=== PATIENT | male | born 1955 | race Two or more races ===

== ENCOUNTER 2022-09-15 05:54 | Day surgery (SDC) | payer BC, SELFPAY ==
[2022-09-09 06:57] LABS: Hematocrit 46.4 % (40-54); Hemoglobin 15.6 g/dL (13.0-16.5); Mean Corp Hgb Conc 33.6 g/dL (32-36); Mean Corpuscular Hgb 30.4 pg (27.0-32.0); Mean Corpuscular Volume 90.3 fL (80-94); Mean Platelet Vol. 8.4 fl (6.2-12.0); Platelet Count 246 K/mm3 (150-450); RBC Distribution Width CV 12.9 % (11.6-14.6); RBC Distribution Width SD 42.9 fl (35.1-43.9); Red Blood Count 5.14 M/mm3 (4.6-6.2); White Blood Count 5.1 K/mm3 (4.4-11.0)
[2022-09-09 07:21] LABS: Anion Gap 7 (5-15); BUN 19 mg/dL (7-18); BUN/Creat Ratio 16.2 RATIO (10-20); Calcium,Total 9.1 mg/dL (8.5-10.1); Chloride 106 mmol/L (98-107); Creatinine, Serum 1.17 mg/dL (0.70-1.30); EST Glomerular Filtration Rate 66 mL/min (>60); Est Glom Filt Rate - Afr Amer 80 mL/min (>60); Glucose 136 mg/dL (74-106); Potassium 3.9 mmol/L (3.5-5.1); Sodium Level 139 mmol/L (136-145)
[2022-09-15] VITALS (8 sets, daily range): BP systolic 105–139; BP diastolic 63–72; PULSE 66–91; RESP 14–18; TEMP 36.1–36.5; O2SAT 93–100; BMI 24.5
--- NOTE | 2022-09-15 06:36 | DCINST_ITS ---
Discharge Instructions Procedure General Surgery Diet Discharge Diet: Light diet - advance as tolerated (if you have questions about your diet instructions, please talk to you doctor.) Activity Discharge Activity: May Not Drive (for 3-5 days or while taking narcotic pain medicine.) May shower in (days): 1 Lifting Restrictions: 10 pounds Dressing / Incision Call your doctor if your incision/area has: Continuous Slow Oozing, Sudden Increased Bleeding, Increased Pain/ Swelling, Increased Redness and Foul Smelling Discharge Call your doctor if you observe: Fever of 101 or Higher Suture Line Care: Avoid Pulling/Pushing and Avoid Pinching/Bending Additional Dressing/Incision Instructions:: Change or remove dressing in 4 days. Leave steri-strips in place for 1 week. Follow Up Care Please Follow Up With: Ranjit Messer MD When: Call [phone] to make an appointment to be seen in about 10 days. Test Results: Test results from this visit will be discussed in further detail at your follow- up appointment, if applicable. Discharge Plan Admission Attending Provider: Ranjit Messer Primary Care Provider: Ace Bernstein Discharge Orders/Prescriptions Prescriptions: No Action lisinopril 5 mg tablet 5 mg PO DAILY tamsulosin [Flomax] 0.4 mg capsule 0.4 mg PO DAILY Qty: 30 0RF Referrals / Follow Up: Ace Bernstein MD [Primary Care Provider] - Disposition Disposition (needs filled in before D/C Order can be placed): Home, Self Care
--- NOTE | 2022-09-15 06:36 | HP.PCM_ITS ---
History and Physical Date of Admission: 09/15/22 Visit Reasons:?Hernia Chief Complaint: right inguinal hernia Wellness Program Manager Required: No Is patient in pain?: Yes (right groin) Allergies No Known Allergies Allergy (Unverified 08/03/22 14:20) Medications lisinopril 5 mg tablet 5 mg PO 08/03/22 [History Confirmed 08/03/22] tamsulosin 0.4 mg capsule (Flomax) 0.4 mg PO DAILY #30 caps 08/03/22 [Rx Confirmed 08/03/22] PFSH Medical History?(Updated 08/03/22 @ 14:21 by Esperanza Turcios) HTN (hypertension) Right inguinal hernia Surgical History?(Updated 08/03/22 @ 14:21 by Esperanza Turcios) S/P tonsillectomy Family History?(Updated 08/03/22 @ 14:22 by Esperanza Turcios) Father Colon cancer HPI HPI HPI: 67-year-old gentleman is referred by Dr. Al Bernstein for surgical consultation regarding hernia.? Written copy of my surgical consult recommendations will return to him.? Very pleasant gentleman.? He was getting his [employer] license renewed and confirmed that he had a right inguinal hernia.? He has noticed a bulge in his right groin for perhaps a month.? No particular pain or tenderness and he is able to reduce it with lying supine.? He denies any acute trauma or injury.? He has never had any previous abdominal surgery.? He enjoys a very good lifestyle and quality of life.? Only has mild hypertension.? He is not on any anticoagulants.? He is able to climb a flight of stairs without difficulty. 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 ROS General General: No weight change, appetite, fatigue, colon cancer, breast cancer or weakness HEENT HEENT: No difficulty swallowing, eye injury, eye surgery, swollen glands or hoarseness Endo Endocrine: No thyroid disease, diabetes mellitus, thyroid cancer, Hair loss, heat intolerance or cold intolerance Skin Skin: No rash or changing moles Breast Breast: No left breast lump, right breast lump, nipple discharge, breast pain, abnormal mammogram, abnormal US or breast enlargement Musc Musculoskeletal: No back problems, arthritis, rheumatoid arthritis, gout or joint pain Cardio Cardiovascular: Yes high blood pressure; No murmur, pacemaker, heart disease, atrial fibrillation, heart attack, heart stent, palpitations, shortness of breat with exertion or chest pain Psych Psychiatric: No depression, anxiety or hearing voices Resp Respiratory: No shortness of breath, No sleep apnea, No cough, No COPD, No asthma, No emphysema and No wheezing Gastro Gastrointestinal: No abdominal pain, No nausea or vomiting, No diarrhea, No constipation, No blood in stool, No acid reflux, No hemorrhoids, No ulcers, No gallbladder problem and No black,tarry stools Sergio Hematologic: No blood thinners, No blood disorders, No bleeding, No anemia and No blood clots Neuro Neurologic: No system reviewed and no additional complaints, except as documented, No as per HPI, No abnormal gait, No abnormal hearing, No abnormal movements, No abnormal speech, No behavioral changes, No burning sensations, No confusion, No convulsions, No disequilibrium, No dizziness, No localized weakness, No frequent falls, No headache(s), No lack of coordination, No loss of vision, No memory loss, No numbness, No other visual disturbances, No radicular pain, No restless legs, No sensory deficit, No syncope, No tingling, No tremor(s), No weakness and No other Exam Const General: cooperative, healthy appearing, comfortable and no acute distress [facility] Head: normal to inspection Eyes General: appearance normal, both eyes and all related structures Neck Neck: normal visual inspection Chest Chest palpation & inspection: normal inspection of the chest Resp Effort & Inspection: normal respiratory effort Auscultation: clear to auscultation bilaterally Cardio Rate: regular rate Rhythm: regular rhythm GI Inspection: normal to inspection Palpation: soft and no hepatosplenomegaly Auscultation: normal bowel sounds Other: Indirect right inguinal hernia, reducible, testicles are descended bilaterally without mass, left groin appears to be solid and intact Skin General: no rashes or lesions noted Lesions: no lesions Neuro General: patient alert, patient awake and patient oriented x3 Extrem General: no calf tenderness Psych Appearance: grossly normal Assessment and Plan Assessment and Plan (1) Right inguinal hernia: ?Status:?Acute ? ? ? Medications: New tamsulosin (Flomax) 0.4 mg? PO DAILY 30 caps 0RF ? ? 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 I recommend to him a laparoscopic right inguinal herniorrhaphy with mesh and I discussed the technique, benefit, risk, altern atives.? He has had an opportunity ask and have questions answered. He does get up at approximately 4 AM to urinate.? I think it would be beneficial to initiate him on tamsulosin preoperatively in an attempt to help avoid urinary retention postoperatively. 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 We will negotiate with him pending how he is an individual recovers postoperatively. I very much appreciate the kind option of assisting with the surgical care Copy: Dr. Al Messer M.D., F.A.C.S I have examined the patient and the H&P has been reviewed. There are no clinical changes since date of exam. Ranjit Messer M.D., F.A.C.S.
[2022-09-15] MEDS: Lactated Ringers 1,000 ML 15 ML IV (06:41)
[2022-09-15] MEDS: Cefazolin 2 GM in 0.9% Normal Saline 100 ML IV (07:26)
[2022-09-15] MEDS: Bupivacaine Mpf 0.5% 30 ML VIAL (07:46)
--- NOTE | 2022-09-15 08:17 | PCM.OPRPT ---
Report of Operation Date of Procedure: 09/15/22 Pre-Operative Diagnosis: Symptomatic right inguinal hernia Post-Operative Diagnosis: Symptomatic indirect right inguinal hernia Surgery/Procedure Performed:: Laparoscopic right inguinal herniorrhaphy with extra-large Bard 3D max mesh Lot [id number], reference [id number], expiry date 10/30/2026 Secure strap Lot [id number], expiry date 10/2023 Description of Surgical Findings:: Timeout and informed consent was obtained. 67-year-old gentleman was taken to the operating placed upon the table underwent general endotracheal intubation anesthesia. Ancef 2 g were given intravenously. The abdomen was sterilely prepped and draped. 0.5% Marcaine was used as a local anesthetic total of 30 cc was used. Local was instilled and vertical infraumbilical incision was created holding sutures of 0 Vicryl placed varies needle inserted saline drop test performed the abdomen was insufflated with CO2 to a pressure of 10 mmHg pressure 10 mm trocar inserted 10 mm laparoscope inserted under visualization 5 mm ports were placed in the right left lower quadrant pelvic inspection revealed no significant defect on the left groin with a significant indirect hernia on the right a ilioinguinal nerve block was performed on the right under laparoscopic visualization the peritoneum superior lateral to the internal ring was incised carried immediately the peritoneum was completely dissected free excellent dissection getting the sac freed from the cord structures was achieved when needed hemostasis obtained with electrocautery and Hem-o-magdy clips I had a complete dissection performed I then placed a extra-large Bard 3D max mesh it very nice covered the defect area and the direct and indirect and femoral areas I secured it laterally and superiorly with secure strap very nice positioning was achieved the peritoneum was approximated to itself with secure strap and Hem-o-magdy clip complete obliteration to the mesh was achieved the abdomen was allowed to deflate of the CO2 the fascia at the umbilicus approximated up to 0 Vicryl [id number] suture skin edges approximated with interrupted 4 Monocryl subdermal stitches. Steri-Strips Telfa OpSite dressings applied. Sponge and instrument and needle counts were reported to the surgeon to be correct. Specimens none. Drains none. Blood loss minimal. The patient was taken to the recovery room in satisfactory addition without apparent complication Ranjit Messer M.D., F.A.C.S. Surgeon: Ranjit Messer Type of Anesthesia: General and Local Anesthesiologist: Antelmo Roy
[2022-09-15] MEDS: Acetaminophen 325 MG Tablet 650 MG PO (10:54)
--- NOTE | 2022-09-15 10:58 | SUR.PHASEII ---
Up to BR, attempted to void, unable, will continue with PO and IV fluids. Pt instructed to call when he feels the need to void.
--- NOTE | 2022-09-15 14:07 | SUR.PHASEII ---
BLADDER SCANNED FOR 175ML, DR PRESLEY PAGED. TORIBIO ART TO GO HOME WITH. D/C ART MONDAY.
== END 2022-09-15 14:42 | disposition home or self-care (01) ==
LOC: SDC 05:57 → AC 06:00
PROVIDERS: PCP Family Medicine; Referring Provider Surgery; Visit Provider Surgery
PROC: (CPT 49650; principal; 2022-09-15 07:10)
DX: K40.90 Unilateral inguinal hernia, without obstruction or gangrene, not specified as recurrent (principal); I10 Essential (primary) hypertension
CPT/HCPCS: 49650; 00840; 36415; 80048; 85027; 93005; J7120; C1781; J2405